=== PATIENT | male | born 1945 | race Caucasian/White ===

== ENCOUNTER → 2024-05-06 10:47 | Outpatient (CLI) | payer MEDICARE, OTHER, SELFPAY ==
--- NOTE | 2024-05-06 | DI.RAD.S_ITS ---
PROCEDURE: FL BARIUM SWALLOW W SPEECH INDICATIONS: OROPHARYNGEAL DYSPHAGIA COMPARISON: None. TECHNIQUE: Examination was conducted in conjunction with speech pathology per standard protocol. In the lateral projection, filming was performed of the patient swallowing. AP projection filming may also be performed with patient swallowing. COMPARISON: FINDINGS/IMPRESSION: Recommend endoscopy to further evaluate severe esophageal reflux seen during study Please see speech pathology notes for detailed description 1.9 minutes of fluoroscopy time/44 images saved Dictated by: Brian Hardy M.D. on 05/06/2024 at 12:27 Approved by: Brian Hardy M.D. on 05/06/2024 at 12:29
--- NOTE | 2024-05-06 12:51 | ST.SWALLOW ---
Visit Care Team Role Provider Type Dixie Monet MD Attending Provider Non-Staff Family Provider Primary Care Provider Referring Provider Specialty: Internal Medicine Address: [address] [place] [address], [place] [address], [place], [address] Email: Modified Barium Swallow Study BAFFLE MOUNTER Modified Barium Swallow Study Start: 05/06/24 11:52 Freq: Status: Active Protocol: Document 05/06/24 11:52 LNK (Rec: 05/06/24 12:50 LNK [id number]) Modified Barium Swallow Study Total Time Visit Start Time 11:00 Visit Stop Time 11:30 Total Visit Minutes [address] Monet Reason for Referral oropharyngeal dysphagia Setting Setting Outpatient Care Patient Information Identification Type Name,Date of Patient History Patient is a 78 year old male seen for a Modified Barium Swallow Study secondary to Parkinson's disease (PD). Pt was seen in outpatient ST for clinical evaluation. BAFFLE MOUNTER recommended MBSS in order to determine pt's current swallow status, aspiration risk and to guide poc. He was accompanied by his . Pt states he was first diagnosed with PD about 3 years ago. He reported swallow trouble earlier this year (January 2024) that had occurred 1-3x/day that began around October 2023. Pt and his reported he felt he needed to clear his throat after swallowing with it taking several minutes to subside. He noted that touching his neck helped him swallow. His described times the pt's the throat clearing was followed by gagging. Pt and his reported today that the throat clearing and gagging have subsided. Both feel pt's swallowing is no longer a concern. Given pt's PMH of, and the progressive nature of PD, they agreed to proceed with the MBSS Pt denies any pertinent medical history and no occurrences of PNA this past year. He reports he is seeing a speech therapist via teletherapy to address his speech/voice and reports it is a Speak Out program. He reports a lot of improvements since starting program. [ End ] Subjective Observations Pt was seated in the fluoroscopy chair with directions and procedures described for him. He indicated he understood and agreed to proceed. Patient Positioning Position View Lat-A/P Imaging Lateral View Textures Administered Trials Presented Thin Liquid via Spoon (IDDSI 0 ),Thin Liquid via Straw (IDDSI 0),Extremely Thick Liquid via Spoon (IDDSI 4),Regular ( IDDSI 7) Barium Tablet Yes The IDDSI Framework Protocol: IDDSI.1 Oral Impairment Source: The Modified Barium Swallow Impairment Profile (MBSImP??) Lip Closure No labial escape Tongue Control During Bolus Hold Cohesive bolus between tongue to palatal seal Bolus Preparation/Mastication Slow prolonged chewing/mashing with complete re-collection Bolus Transport/Lingual Motion Brisk tongue motion Oral Residue Trace residue lining oral structures Location Tongue Initiation of Pharyngeal Swallow Bolus head in valleculae Additional Oral Impairment Observations *OME and DKS were observed to be WNL. *Mastication observed with rotary chew pattern. *Good bolus formation, control with AP transition functional . *Dentition natural and adequate for mastication Pharyngeal Impairment Source: The Modified Barium Swallow Impairment Profile (MBSImP??) Soft Palate Elevation No bolus between soft palate & pharyngeal wall Laryngeal Elevation Part.sup.move.thyroid cart/ part.approx.arytenoids to epiglot.petiole Anterior Hyoid Excursion Partial anterior movement Epiglottic Movement Complete inversion Laryngeal Vestibular Closure Complete; no air/contrast in laryngeal vestibule Pharyngeal Stripping Wave Present - complete Pharyngoesophageal Segment Opening Complete distention & complete duration; no obstruction of flow Tongue Base Retraction Trace column of contrast/air betwn tongue base & post. pharyngeal wall Pharyngeal Residue Collection of residue within/ on pharyngeal structures Location Diffuse (>3 areas) Additional Pharyngeal Impairment Mild reduction in tongue base Observations retraction strength *Reduced hyolaryngeal elevation/movement *Epiglottic inversion complete *Flash penetration x2 (WNL for pt age) *No tracheal aspiration *Diffused contrast residue in pharynx - primarily in valeculla A/P View The IDDSI Framework Protocol: IDDSI.1 A/P View Observations Pharyngeal Contraction Complete Esophageal Clearance Upright Position Complete clearance; esophageal coating Vocal Fold Function Good Esophageal Function Slowed Clearing,Stasis Additional A-P Observations Initially when pt position changed from lateral to AP, contrast was noted in the esophagus. This cleared with water wash. Liquids and barium tablet cleared esophagus as expected. The noted retention may be related to aging with mild dysmotility, PD or a combination of both. It was recommended to pt and his to increase fluid intake during meals to assist gravity in esophageal clearance Clinical Impressions Findings Currently, pt's swallow appears to be WFL for his age with minimal aspiration risk. Pt reported throat clearing has stopped and does not present as problem at this time. Discussed necessity of baseline MBSS as PD is progressive and pt's swallow is likely to change in the future. Pt and his agreed Would still recommend outpt ST for swallow therapy targeting base of tongue exercises to increase strength. Safe swallow strategy education is also recommended to reduce aspiration risk as PD progresses Patient Appropriate for Therapy Yes: See above comments Recommendations Diet Comments No change in diet recommended Aspiration Precautions Recommended Precautions Upright at 90 Degrees, Alternate Liquids/Solids, Frequent Rest Periods,Small Bites/Sips Treatment Plan Therapy Recommendations Outpatient Speech Therapy,Base of Tongue Exercises
== END ==
PROVIDERS: Family Provider Hospitalist; PCP Hospitalist; Referring Provider Hospitalist; Visit Provider Hospitalist
DX: R13.12 Dysphagia, oropharyngeal phase (principal)
CPT/HCPCS: 74230; 92611